=== PATIENT | male | born 2000 | race Asian ===

== ENCOUNTER 2022-09-05 12:52 | Emergency (ER) | payer MEDICAID ==
[~2022-09-05] VITALS: Ht 180.3 cm; Wt 88.5 kg
[2022-09-05 12:58] VITALS: BP_SYST 143
[2022-09-05] MEDS ORDERED: OSEL75CA PO (16:29)
== END 2022-09-05 17:31 | disposition home or self-care (01) ==
LOC: SED 12:52
DX: U07.1 COVID-19 (principal); J10.1 Influenza due to other identified influenza virus with other respiratory manifestations; R05.9 Cough, unspecified; R50.9 Fever, unspecified; Z79.899 Other long term (current) drug therapy
CPT/HCPCS: 36415; 99283

== ENCOUNTER 2023-08-10 06:45 | Emergency (ER) | payer MEDICAID ==
[~2023-08-10] VITALS: Ht 180.3 cm; Wt 90.7 kg
[~2023-08-10 06:45] MED LIST: OSEL75CA PO
[2023-08-10 06:57] VITALS: BP_SYST 126; PULSE 72; RESP 16; TEMP 98.3; O2SAT 99
[2023-08-10] MEDS ORDERED: NABU-140 PO (09:05)
[2023-08-10] MEDS ORDERED: ZAN4 PO (09:05)
[2023-08-10 09:18] VITALS: BP_SYST 130; PULSE 73; RESP 18; TEMP 98.1; O2SAT 98
== END 2023-08-10 09:19 | disposition home or self-care (01) ==
LOC: SED 06:45
DX: M79.10 Myalgia, unspecified site (principal); M25.512 Pain in left shoulder; Z79.899 Other long term (current) drug therapy
CPT/HCPCS: 73010-TC; 99283

== ENCOUNTER 2023-08-19 05:25 | Emergency (ER) | payer MEDICAID ==
[~2023-08-19] VITALS: Ht 182.9 cm; Wt 90.7 kg
[~2023-08-19 05:25] MED LIST changes: +NABU-140 PO; +ZAN4 PO
[2023-08-19 05:30] VITALS: BP_SYST 126; PULSE 63; RESP 18; TEMP 97.5; O2SAT 99
[2023-08-19] MEDS ORDERED: PRED20TA PO (06:12)
[2023-08-19 06:17] VITALS: BP_SYST 129; PULSE 61; RESP 18; TEMP 97.5; O2SAT 99
== END 2023-08-19 06:16 | disposition home or self-care (01) ==
LOC: SED 05:25
DX: M54.16 Radiculopathy, lumbar region (principal); M54.50 Low back pain, unspecified; M79.662 Pain in left lower leg; Z79.899 Other long term (current) drug therapy
CPT/HCPCS: 99283